=== PATIENT | female | born 1975 | race American Indian/Alaskan Native ===

== ENCOUNTER 2020-11-05 23:34 | Emergency (ER) | payer SELFPAY ==
[~2020-11-05 23:34] MED LIST: CIPRO500 MG PO; NORCO 5-325 TA1 EACH PO
[2020-11-06] MEDS ORDERED: HYDROCODON-ACE1 EA10 PO (00:05)
[2020-11-06] MEDS ORDERED: CLEOCIN HCL300 MG PO (00:05)
== END 2020-11-06 00:15 | disposition home or self-care (01) ==
LOC: ED 23:34
DX: K08.89 Other specified disorders of teeth and supporting structures (principal)
CPT/HCPCS: 99282

== ENCOUNTER 2021-06-30 10:29 | Emergency (ER) | payer OTHER ==
[~2021-06-30] VITALS: Ht 154.9 cm; Wt 79.8 kg
[~2021-06-30 10:29] MED LIST changes: +CLEOCIN HCL300 MG PO; +HYDROCODON-ACE1 EA10 PO
--- NOTE | 2021-06-30 22:04 | EKG ---
[facility] [address] [facility] [place] [address] Signed Normal sinus rhythm Right axis deviation Right ventricular hypertrophy Prolonged QT Abnormal ECG No previous ECGs available Confirmed by NUPUR ALVES MD ([id number]) on 06/30/2021 10:04:06 PM Electronically Signed By: NUPUR ALVES MD 06/30/214 PATIENT NAME: CHRIS BROWN Electrocardiogram DATE OF : 75 PHYSICIAN: NUPUR ALVES MD REPORT #: [id number] REPORT IS CONFIDENTIAL AND NOT TO BE RELEASED WITHOUT AUTHORIZATION
== END 2021-06-30 13:14 | disposition home or self-care (01) ==
LOC: ED 10:29
DX: U07.1 COVID-19 (principal)
CPT/HCPCS: 80053; 85025; 93005; 93010; 99285-25; M0243; Q0244

== ENCOUNTER 2022-10-02 10:14 | Emergency (ER) | payer OTHER ==
[~2022-10-02] VITALS: Ht 154.9 cm; Wt 80.7 kg
[2022-10-02] MEDS ORDERED: PSEUDOEPHEDRIN120 MG PO (10:27)
[2022-10-02] MEDS ORDERED: ONDANSETRON ODT8 MG PO (12:12)
== END 2022-10-02 12:49 | disposition home or self-care (01) ==
LOC: ED 10:14
DX: B34.9 Viral infection, unspecified (principal); Z79.899 Other long term (current) drug therapy; Z20.822 Contact with and (suspected) exposure to COVID-19
CPT/HCPCS: 36415; 80053; 85025; 87502; 96361; 96374; 99284-25; A9270; J2405; J7030; U0003

== ENCOUNTER 2022-12-10 17:44 | Emergency (ER) | payer OTHER ==
[~2022-12-10] VITALS: Ht 154.9 cm; Wt 79.1 kg
[~2022-12-10 17:44] MED LIST changes: +ONDANSETRON ODT8 MG PO; +PSEUDOEPHEDRIN120 MG PO
[2022-12-10] MEDS ORDERED: ONDANSETRON ODT4 MG PO (20:40)
[2022-12-10] MEDS ORDERED: AMOX TR-K CLV1 EAC1 PO (20:40)
== END 2022-12-10 20:55 | disposition home or self-care (01) ==
LOC: ED 17:44
DX: K57.32 Diverticulitis of large intestine without perforation or abscess without bleeding (principal)
CPT/HCPCS: 36415; 74176; 80053; 83690; 85025; 96374; 96375; 99284-25; J1885; J2405; J7121

== ENCOUNTER 2025-03-31 20:29 | Emergency (ER) | payer OTHER ==
[~2025-03-31] VITALS: Ht 154.9 cm; Wt 82.3 kg
[~2025-03-31 20:29] MED LIST changes: +AMOX TR-K CLV1 EAC1 PO; +ONDANSETRON ODT4 MG PO
[2025-03-31] MEDS ORDERED: EPIPEN AUTO INJECTOR 0.3 MG/0.3 ML ML IM ONE (20:45)
[2025-03-31] MEDS ORDERED: LACTATED RINGER'S 1,000 ML IV ONE (20:45)
[2025-03-31] MEDS ORDERED: FAMOTIDINE 20 MG/ 2 ML VIAL IV ONE (20:45)
[2025-03-31] MEDS ORDERED: EPIPEN 2-P0.3 MG/0.3 IM ×2 (22:29→22:30)
[2025-03-31] MEDS ORDERED: METHYLPREDNISOLO4 M1 PO (22:30)
[2025-03-31 22:45] VITALS: BP 132/89
== END 2025-03-31 22:45 | disposition home or self-care (01) ==
LOC: ED 20:29
DX: T78.1XXA Other adverse food reactions, not elsewhere classified, initial encounter (principal)
CPT/HCPCS: 96374; 96375; 99283-25; J0171; J1200; J2919; J7121

== ENCOUNTER 2025-06-10 09:00 | Day surgery (SDC) | payer BC, OTHER ==
[~2025-06-10] VITALS: Ht 154.9 cm; Wt 83.0 kg
[~2025-06-10 09:00] MED LIST changes: +ADVIL200 MG PO; +EPIPEN 2-P0.3 MG/0.3 IM; +IBLOOD GLUCOSE TEST STRIP 1 EA TEST VI PRN; +LACTATED RINGER'S 1,000 ML IV SCH; +LIDOCAINE HCL 1% 5 ML SDV INJ ONE; +METHYLPREDNISOLO4 M1 PO; +TYLENOL325 MG PO
[2025-06-10 09:12] VITALS: BP 106/50
--- NOTE | 2025-06-10 09:38 | NUR ---
NO ONE WAITING CALL [facility].
--- NOTE | 2025-06-10 10:31 | NUR ---
06/10/25 Nancy1 Shanel Fountain 1022- PT PRESENTS TO PACU, LEFT LATERAL POSITION. PT REACTIVE TO STIMULUS, TRIES TO TALK BUT NOT UNDERSTANDABLE, NYSTAGMUS. ENCOURAGED PT TO REST. LR INFUSING TO RH IV, BREATHING EVEN AND NON LABORED ON ROOM AIR. ALL MONITORS IN PLACE. 1030- PT CONTINUES TO REST AT THIS TIME, PT REACTIVE TO STIMULUS.
[2025-06-10 10:59] VITALS: BP 105/58
--- NOTE | 2025-06-11 08:47 | OR ---
[facility] [address] [place], [place] [address] Signed DATE OF OPERATION: 06/10/2025 SURGEON: Cayden Herndon DO PREOPERATIVE DIAGNOSIS: Colon cancer screening. POSTOPERATIVE DIAGNOSIS: Colon cancer screening with inadequate bowel prep. PROCEDURE PERFORMED: Attempted colonoscopy, due to inadequate bowel prep we chose rectosigmoidoscopy. ANESTHESIA: IV sedation. ESTIMATED BLOOD LOSS: None. DRAINS: None. COMPLICATIONS: None. DESCRIPTION OF PROCEDURE: The patient was brought to the GI lab and placed in the supine position. After induction of IV sedation, the patient was then placed in left lateral position, padded to the satisfaction of anesthesia. The Olympus video colonoscope was then introduced into the anus under direct visualization and advanced. The colon was insufflated to the rectosigmoid area, several large areas of hard stool were noted. Multiple attempts were passed, but the hard stool was in the lumen and obstructing further mobile of the colonoscope itself. Multiple irrigation attempts were then attempted to irrigate and removed the areas of stool to advance the scope, but this could not be done and the scope was withdrawn due to inadequate bowel prep. The patient tolerated the procedure well and taken to recovery room in satisfactory condition. Electronically Signed By: CAYDEN HERNDON DO 06/11/25 0847 PATIENT NAME: CHRIS BROWN OPERATIVE REPORT DATE OF : 75 REPORT #: [id number] PHYSICIAN: CAYDEN HERNDON DO PCP: ADALGISA RHODES REPORT IS CONFIDENTIAL AND NOT TO BE RELEASED WITHOUT AUTHORIZATION [address] [place], [place] [address] Signed DO KANE Chang/BLAYNE /[id number] Copies: ~ Electronically Signed By: CAYDEN HERNDON DO 06/11/25 0847 PATIENT NAME: CHRIS BROWN OPERATIVE REPORT DATE OF : 75 REPORT #: [id number] PHYSICIAN: CAYDEN HERNDON DO PCP: ADALGISA RHODES REPORT IS CONFIDENTIAL AND NOT TO BE RELEASED WITHOUT AUTHORIZATION
== END 2025-06-10 11:08 | disposition home or self-care (01) ==
LOC: DS 09:00
PROVIDERS: ATTEND Surgery
PROC: 0DJD8ZZ Inspection of Lower Intestinal Tract, Via Natural or Artificial Opening Endoscopic (ICD-10-PCS; principal; 2025-06-10 10:50)
DX: Z12.11 Encounter for screening for malignant neoplasm of colon (principal); F32.A Depression, unspecified; E66.9 Obesity, unspecified; Z79.899 Other long term (current) drug therapy
CPT/HCPCS: 00811; 36415; 84703; J2704